=== PATIENT | female | born 2000 | race Caucasian/White ===

== ENCOUNTER 2019-01-11 01:17 | Inpatient (IN) ==
[2019-01-11 02:41] LABS: Bilirubin,Urine Negative (Negative); Blood,Urine Negative (Negative); Clarity,Urine Clear (Clear); Color,Urine Yellow (Yellow); Glucose,Urine (UA) Normal (Normal); Ketones,Urine Negative (Negative); Leukocyte Esterase,Urine Moderate (Negative); Nitrite,Urine Negative (Negative); PH,Urine 5.5 pH Units (5.0-8.0); Protein,Urine Trace mg/dL (Neg-Trace); Specific Gravity,Urine 1.028 (1.010-1.025); Urobilinogen,Urine Normal (Normal)
[2019-01-11 02:43] LABS: Bacteria,Urine None Seen per hpf (None-Few); Hyaline Casts,Urine None Seen per lpf (None-Few); RBC,Urine 0-3 per hpf (0-3); Squamous Epithelial Cell,Urine Many per lpf (None-Few); WBC,Urine 15-30 per hpf (0-3)
[2019-01-11 03:02] LABS: Basophils # 0.1 K/mcL (0.0-0.2); Basophils % 0.4 %; Eosinophils # 0.1 K/mcL (0.0-0.6); Eosinophils % 0.4 %; Hematocrit 39.3 % (35.3-44.9); Hemoglobin 12.8 g/dL (11.5-15.4); Immature Granulocytes % 0.3 % (0-4); Lymphocytes # 1.9 K/mcL (0.6-4.6); Mean Corpuscular HGB Conc 32.6 g/dL (31.6-35.5); Mean Corpuscular Hemoglobin 28.1 pg (28.0-33.3); Mean Corpuscular Volume 86.2 fL (83.0-100.0); Mean Platelet Volume 9.2 fL (9.4-12.4); Monocytes # 0.7 K/mcL (0.0-1.3); Monocytes % 5.8 %; Neutrophils # 9.2 K/mcL (1.6-8.9); Platelet Count 314 K/mcL (140-400); Red Blood Count 4.56 M/mcL (3.82-4.97); Red Cell Distribution Width 12.6 % (11.5-14.5); Segmented Neutrophils % 77.1 %
[2019-01-11 03:16] LABS: Amphetamine Screen,Urine Negative ng/mL (Cutoff=1000); Barbiturate Screen,Urine Negative ng/mL (Cutoff=200); Benzodiazepines Screen,Urine Negative ng/mL (Cutoff=200); Cannabinoid Screen,Urine Negative ng/mL (Cutoff = 50); Cocaine Screen,Urine Negative ng/mL (Cutoff= 300); Opiate Screen,Urine Negative ng/mL (Cutoff=300); Phencyclidine Screen,Urine Negative ng/mL (Cutoff=25)
[2019-01-11 03:18] LABS: Acetaminophen < 10 mcg/mL (10-20); BUN/Creatinine Ratio 22 (6-26); Blood Urea Nitrogen 17 mg/dL (6-20); Calcium 9.7 mg/dL (8.6-10.3); Carbon Dioxide 20 mEq/L (23-29); Chloride 108 mEq/L (98-107); Ethanol < 10 mg/dL (Less than 10); Glucose 94 mg/dL (70-105); Osmolality,Calculated 289 (280-300); Potassium 3.9 mEq/L (3.5-5.1); Salicylate < 2.5 mg/dL (15.0-30.0); Sodium 139 mEq/L (136-145); eGFR For African Americans > 60 (> 60); eGFR For Non-African Americans > 60 (> 60)
[2019-01-11] MEDS ORDERED: traZODone 50 MG TABLET PO PRN (07:45)
[2019-01-11] MEDS ORDERED: Acetaminophen 325 MG TABLET PO PRN (07:45)
[2019-01-11] MEDS ORDERED: Haloperidol Lactate 5 MG/ML VIAL IM PRN (07:45)
[2019-01-11] MEDS ORDERED: *HR* LORazepam 1 MG TABLET PO PRN (07:45)
[2019-01-11] MEDS ORDERED: *HR* LORazepam 2 MG/ML VIAL IM PRN (07:45)
[2019-01-11] MEDS ORDERED: hydrOXYzine pamoate 25 MG CAPSULE PO PRN (07:45)
[2019-01-11] MEDS ORDERED: MOM Conc 10 ML UD.LIQ PO PRN (07:45)
[2019-01-11] MEDS ORDERED: Mag Hydrox/Al Hydrox/Simeth 30 ML UDC PO PRN (07:45)
[2019-01-12] MEDS: FLUoxetine 20 MG CAPSULE PO SCH (12:08)
[2019-01-13] MEDS: FLUoxetine 20 MG CAPSULE PO SCH (08:25)
[2019-01-13 09:31] VITALS: BP 110/78
== END 2019-01-13 12:30 | disposition home or self-care (01) | DRG 812 ==
LOC: EMEROOARM 01:17 → 1ANU 07:37 → SUATTDRO 07:37 → 1ANU 07:55
PROVIDERS: ADMIT Psychiatry & Neurology Psychiatry; ATTEND Psychiatry & Neurology Psychiatry